=== PATIENT | female | born 1945 | race African-American/Black ===

== ENCOUNTER 2020-03-10 08:37 | Inpatient (IN) | payer MEDICARE, MEDICAID ==
[2020-03-10] VITALS (30 sets, daily range): BP systolic 107–167; BP diastolic 65–125
[~2020-03-10] VITALS: Ht 172.7 cm; Wt 115.2 kg
[2020-03-10] MEDS: IPRATROPIUM/ALBUTEROL 0.5-3(2.5)MG/3ML NEB HHN SCH ×2 (04:41→16:00)
[~2020-03-10 08:37] MED LIST: CARV3.1242 PO; VERA240C2 PO
[2020-03-10] MEDS ORDERED: ACETAMINOPHEN 650MG SUPP PR STA (08:53)
[2020-03-10] MEDS ORDERED: PIPERACILLIN/TAZ 3.375G PREMIX 50 ML IV ONE (09:00)
[2020-03-10] MEDS ORDERED: VANCOMYCIN 1 G PREMIX 200 ML IV ONE (09:00)
[2020-03-10] MEDS ORDERED: SODIUM CHLORIDE 0.9% 1000ML BAG (SEPSIS BOLUS) IV ONE (09:00)
[2020-03-10] MEDS ORDERED: ETOMIDATE 2MG/ML 10ML VIAL IV ONE (09:25)
[2020-03-10] MEDS ORDERED: VECURONIUM BROMIDE 10 MG/VIAL IV ONE (09:25)
[2020-03-10] MEDS ORDERED: PROPOFOL 10MG/ML 100ML 100 ML IV ONE (09:45)
[2020-03-10 09:54] LABS: HEMATOCRIT. 51.1 % (36.0-48.0); MEAN CORPUSCULAR HEMOGLOBIN 29.7 pg (28.0-32.0); MEAN CORPUSCULAR VOLUME 89.4 fL (81.0-99.0); RED BLOOD CELL COUNT 5.72 mill/uL (4.2-5.4); RED CELL DISTRIBUTION WIDTH 14.5 % (11.6-14.6)
[2020-03-10 09:56] LABS: CHLORIDE 102 mEq/L (98-107)
[2020-03-10 10:08] LABS: INR 1.1; PROTHROMBIN TIME 11.8 sec (9.6-11.0)
[2020-03-10] MEDS ORDERED: LABETALOL 5MG/ML SYR 20 MG/4 ML SYRINGE IV ONE (10:30)
[2020-03-10 10:52] LABS: MEAN PLATELET VOLUME 11.4 fl (7.4-10.4); PLATELET 116 x1000/uL (130-400)
[2020-03-10 10:53] LABS: PLATELET ESTIMATE SLIGHTLY DECREASED
[2020-03-10 11:08] LABS: CLARITY URINE CLEAR (CLEAR); COLOR URINE DARK YELLOW (YELLOW); KETONES URINE NEGATIVE (NEGATIVE); LEUKOCYTE ESTERASE URINE NEGATIVE (NEGATIVE); NITRITE URINE NEGATIVE (NEGATIVE); OCCULT BLOOD URINE 3+ (NEGATIVE); PH URINE 5.5 (4.5-8.0); PROTEIN URINE 3+ (NEGATIVE); SPECIFIC GRAVITY URINE 1.037 (1.005-1.030)
[2020-03-10] MEDS ORDERED: IPRATROPIUM/ALBUTEROL 0.5-3(2.5)MG/3ML NEB HHN PRN (13:15)
[2020-03-10 13:27] LABS: BG BASE EXCESS 0.9 mmol/L (-2.0-2.0); BG CARBOXYHEMOGLOBIN 0.3 % (0.5-1.5); BG DEOXYHEMOGLOBIN 0.4 % (0.0-5.0); BG FRACTION INSPIRED OXYGEN 100; BG HCO3 ACT 25.1 mmol/L (22.0-26.0); BG METHEMOGLOBIN 0.3 % (0.0-1.5); BG OXYGEN SATURATION 99.6 % (92.0-98.5); BG PCO2 38.7 mmHg (35.0-45.0); BG PO2 540.9 mmHg (75.0-100.0); BG SAMPLE SITE RIGHT BRACHIAL; BG TIDAL VOLUME(mL) 450 mL; BG TOTAL HEMOGLOBIN 15.3 g/dL (12.0-18.0); BG VENT MODE VENT - A/C; BG VENT RATE 16 set
[2020-03-10] MEDS ORDERED: ONDANSETRON HCL 4MG/2ML INJ IV PRN (14:15)
[2020-03-10] MEDS ORDERED: DIPHENHYDRAMINE 50MG/ML VIAL IV PRN (14:15)
[2020-03-10] MEDS ORDERED: LORAZEPAM 2MG/ML CPJ IV PRN (14:15)
[2020-03-10] MEDS: FAMOTIDINE 20MG/2ML VIAL IV SCH (14:52)
[2020-03-10] MEDS: DEXT 5%/0.45% NACL 1000ML 1,000 ML IV SCH (14:52)
[2020-03-10] MEDS: ENOXAPARIN 40MG/0.4ML SYR SUBCUT SCH (14:53)
[2020-03-10 15:02] LABS: *AMPHETAMINES SCREEN URINE NEGATIVE (NEGATIVE)
[2020-03-10 15:03] LABS: *BARBITURATES SCREEN URINE NEGATIVE (NEGATIVE); *BENZODIAZEPINES SCREEN URINE NEGATIVE (NEGATIVE); *COCAINE SCREEN URINE NEGATIVE (NEGATIVE); METHADONE URINE SCREEN NEGATIVE (NEGATIVE); OPIATES URINE SCREEN NEGATIVE (NEGATIVE)
[2020-03-10 15:04] LABS: CANNABINOID URINE SCREEN NEGATIVE (NEGATIVE); PHENCYCLIDINE URINE SCREEN NEGATIVE (NEGATIVE)
[2020-03-10] MEDS: PROPOFOL 10MG/ML 100ML 100 ML IV PRN (15:06)
[2020-03-10] MEDS: VERAPAMIL HCL 80 MG TABLET NG SCH ×2 (15:58→23:24)
[2020-03-10] MEDS ORDERED: CARVEDILOL 3.125 MG TABLET NG SCH (21:00)
[2020-03-10] MEDS: CARVEDILOL 6.25 MG TABLET NG SCH (21:00)
[2020-03-10] MEDS ORDERED: FAMOTIDINE 20MG/2ML VIAL IV SCH (21:00)
[2020-03-11] VITALS (60 sets, daily range): BP systolic 86–176; BP diastolic 35–112
[2020-03-11] MEDS: DEXT 5%/0.45% NACL 1000ML 1,000 ML IV SCH ×2 (03:38→17:00)
[2020-03-11] MEDS: VERAPAMIL HCL 80 MG TABLET NG SCH ×3 (05:18→21:26)
[2020-03-11] MEDS: PROPOFOL 10MG/ML 100ML 100 ML IV PRN (06:06)
[2020-03-11 06:16] LABS: BASOPHILS % 0.1 % (0.0-2.0); HEMATOCRIT. 42.7 % (36.0-48.0); LYMPHOCYTES % 7.4 % (20.0-50.0); MEAN CORPUSCULAR HEMOGLOBIN 29.4 pg (28.0-32.0); MEAN CORPUSCULAR VOLUME 89.7 fL (81.0-99.0); MONOCYTES % 11.5 % (2.0-8.0); PLATELET 109 x1000/uL (130-400); RED BLOOD CELL COUNT 4.76 mill/uL (4.2-5.4); RED CELL DISTRIBUTION WIDTH 14.6 % (11.6-14.6)
[2020-03-11 06:28] LABS: CHLORIDE 106 mEq/L (98-107)
[2020-03-11 06:56] LABS: PHOSPHORUS 3.3 mg/dL (2.5-4.9)
[2020-03-11 06:58] LABS: T4 FREE 1.33 ng/dL (0.76-1.46)
[2020-03-11] MEDS: ENOXAPARIN 40MG/0.4ML SYR SUBCUT SCH (08:04)
[2020-03-11] MEDS: FAMOTIDINE 20MG/2ML VIAL IV SCH (08:04)
[2020-03-11] MEDS: CARVEDILOL 6.25 MG TABLET NG SCH ×2 (08:05→21:26)
[2020-03-11] MEDS: IPRATROPIUM/ALBUTEROL 0.5-3(2.5)MG/3ML NEB HHN SCH ×3 (08:36→23:58)
[2020-03-11] MEDS ORDERED: PROPOFOL 10MG/ML 100ML 100 ML IV PRN (08:45)
[2020-03-11 08:57] LABS: BG BASE EXCESS 1.1 mmol/L (-2.0-2.0); BG CARBOXYHEMOGLOBIN 0.2 % (0.5-1.5); BG FRACTION INSPIRED OXYGEN 40; BG HCO3 ACT 24.4 mmol/L (22.0-26.0); BG METHEMOGLOBIN 0.2 % (0.0-1.5); BG OXYHEMOGLOBIN 98.6 % (94.0-97.0); BG PCO2 34.8 mmHg (35.0-45.0); BG PH 7.463 (7.350-7.450); BG SAMPLE SITE RIGHT RADIAL; BG TIDAL VOLUME(mL) 450 mL; BG TOTAL HEMOGLOBIN 14.4 g/dL (12.0-18.0); BG VENT MODE VENT - A/C; BG VENT RATE 16 set
[2020-03-11] MEDS: PIPERACILLIN/TAZOBACTAM 3.375 G in DEXT 5% WATER 100 ML IV SCH ×3 (10:47→23:57)
[2020-03-11] MEDS: ACETAMINOPHEN 650MG/20.3ML UDC NG PRN (21:26)
[2020-03-12] VITALS (48 sets, daily range): BP systolic 97–146; BP diastolic 45–109
[2020-03-12] MEDS: IPRATROPIUM/ALBUTEROL 0.5-3(2.5)MG/3ML NEB HHN SCH ×3 (00:05→14:47)
[2020-03-12] MEDS: PIPERACILLIN/TAZOBACTAM 3.375 G in DEXT 5% WATER 100 ML IV SCH ×4 (06:30→23:55)
[2020-03-12] MEDS: VERAPAMIL HCL 80 MG TABLET NG SCH ×3 (06:30→21:21)
[2020-03-12] MEDS: DEXT 5%/0.45% NACL 1000ML 1,000 ML IV SCH ×3 (06:31→21:18)
[2020-03-12] MEDS: FAMOTIDINE 20MG/2ML VIAL IV SCH (09:36)
[2020-03-12] MEDS: CARVEDILOL 6.25 MG TABLET NG SCH ×2 (09:36→21:21)
[2020-03-12 11:32] LABS: HEMATOCRIT. 38.9 % (36.0-48.0); HEMOGLOBIN. 12.8 g/dL (12.0-16.0); MEAN CORPUSCULAR HEMOGLOBIN 29.4 pg (28.0-32.0); MEAN CORPUSCULAR VOLUME 89.2 fL (81.0-99.0); PLATELET 105 x1000/uL (130-400); RED BLOOD CELL COUNT 4.36 mill/uL (4.2-5.4); RED CELL DISTRIBUTION WIDTH 14.7 % (11.6-14.6)
[2020-03-12 12:55] LABS: PLATELET ESTIMATE SLIGHTLY DECREASED
[2020-03-12] MEDS ORDERED: POTASSIUM CHLORIDE 20MEQ/PACKET PO NR (14:00)
[2020-03-13] VITALS (47 sets, daily range): BP systolic 110–171; BP diastolic 52–99
[2020-03-13 05:27] LABS: BASOPHILS % 0.2 % (0.0-2.0); EOSINOPHILS % 0.5 % (0.0-5.0); HEMATOCRIT. 37.8 % (36.0-48.0); HEMOGLOBIN. 12.4 g/dL (12.0-16.0); MEAN CORPUSCULAR HEMOGLOBIN 29.6 pg (28.0-32.0); MEAN PLATELET VOLUME 10.3 fl (7.4-10.4); MONOCYTES % 14.5 % (2.0-8.0); NEUTROPHILS % 76.8 % (40.0-76.0); PLATELET 119 x1000/uL (130-400); RED CELL DISTRIBUTION WIDTH 14.5 % (11.6-14.6)
[2020-03-13] MEDS: PIPERACILLIN/TAZOBACTAM 3.375 G in DEXT 5% WATER 100 ML IV SCH ×4 (06:10→23:06)
[2020-03-13] MEDS: VERAPAMIL HCL 80 MG TABLET NG SCH ×3 (06:10→22:28)
[2020-03-13] MEDS: IPRATROPIUM/ALBUTEROL 0.5-3(2.5)MG/3ML NEB HHN SCH (08:58)
[2020-03-13] MEDS: FAMOTIDINE 20MG/2ML VIAL IV SCH (09:02)
[2020-03-13] MEDS: CARVEDILOL 6.25 MG TABLET NG SCH ×2 (09:02→20:49)
[2020-03-13] MEDS: ASPIRIN 81MG TABLET NG SCH (09:02)
[2020-03-13] MEDS: DEXT 5%/0.45% NACL 1000ML 1,000 ML IV SCH ×2 (10:46→22:31)
[2020-03-13] MEDS ORDERED: VANCOMYCIN 1,250 MG in DEXT 5% WATER 250 ML IV SCH (14:00)
[2020-03-14] VITALS (48 sets, daily range): BP systolic 125–175; BP diastolic 46–119
[2020-03-14] MEDS: PIPERACILLIN/TAZOBACTAM 3.375 G in DEXT 5% WATER 100 ML IV SCH ×4 (05:12→23:54)
[2020-03-14] MEDS: VERAPAMIL HCL 80 MG TABLET NG SCH ×3 (05:13→21:49)
[2020-03-14 05:44] LABS: HEMATOCRIT. 37.9 % (36.0-48.0); HEMOGLOBIN. 12.6 g/dL (12.0-16.0); MEAN CORPUSCULAR HEMOGLOBIN 29.8 pg (28.0-32.0); MEAN CORPUSCULAR VOLUME 89.7 fL (81.0-99.0); MEAN PLATELET VOLUME 10.6 fl (7.4-10.4); PLATELET 126 x1000/uL (130-400); RED BLOOD CELL COUNT 4.22 mill/uL (4.2-5.4); RED CELL DISTRIBUTION WIDTH 14.6 % (11.6-14.6)
[2020-03-14 05:46] LABS: CHLORIDE 105 mEq/L (98-107)
[2020-03-14] MEDS: FAMOTIDINE 20MG/2ML VIAL IV SCH (08:39)
[2020-03-14] MEDS: ASPIRIN 81MG TABLET NG SCH (08:39)
[2020-03-14] MEDS: CARVEDILOL 6.25 MG TABLET NG SCH ×2 (08:40→21:49)
[2020-03-14] MEDS: IPRATROPIUM/ALBUTEROL 0.5-3(2.5)MG/3ML NEB HHN SCH ×3 (09:24→23:44)
[2020-03-14] MEDS ORDERED: LIDOCAINE HCL 1% 20ML VIAL (Pyxis) INJ ONE (09:36)
[2020-03-14 10:17] LABS: BG CARBOXYHEMOGLOBIN 0.3 % (0.5-1.5); BG DEOXYHEMOGLOBIN 1.4 % (0.0-5.0); BG FRACTION INSPIRED OXYGEN 30; BG METHEMOGLOBIN 0.3 % (0.0-1.5); BG OXYGEN SATURATION 98.6 % (92.0-98.5); BG PCO2 29.7 mmHg (35.0-45.0); BG PH 7.526 (7.350-7.450); BG PO2 135.6 mmHg (75.0-100.0); BG SAMPLE SITE RIGHT RADIAL; BG TIDAL VOLUME(mL) 450 mL; BG TOTAL HEMOGLOBIN 12.5 g/dL (12.0-18.0); BG VENT MODE VENT - A/C; BG VENT RATE 16 set
[2020-03-14] MEDS: VANCOMYCIN 1 G PREMIX 200 ML IV SCH (11:12)
[2020-03-14 11:24] LABS: PLATELET ESTIMATE NORMAL
[2020-03-14] MEDS: DEXT 5%/0.45% NACL 1000ML 1,000 ML IV SCH (12:50)
[2020-03-15] VITALS (46 sets, daily range): BP systolic 104–170; BP diastolic 45–112
[2020-03-15] MEDS: IPRATROPIUM/ALBUTEROL 0.5-3(2.5)MG/3ML NEB HHN SCH ×3 (00:37→16:25)
[2020-03-15] MEDS: DEXT 5%/0.45% NACL 1000ML 1,000 ML IV SCH ×2 (01:40→14:20)
[2020-03-15] MEDS: VANCOMYCIN 1 G PREMIX 200 ML IV SCH ×2 (05:01→23:13)
[2020-03-15] MEDS: PIPERACILLIN/TAZOBACTAM 3.375 G in DEXT 5% WATER 100 ML IV SCH ×4 (05:27→23:13)
[2020-03-15] MEDS: VERAPAMIL HCL 80 MG TABLET NG SCH ×3 (05:28→21:28)
[2020-03-15 06:01] LABS: HEMOGLOBIN 11.9 g/dL (12.0-16.0); MEAN CORPUSCULAR HEMOGLOBIN 29.3 pg (28.0-32.0); MEAN CORPUSCULAR VOLUME 88.3 fL (81.0-99.0); PLATELET 146 x1000/uL (130-400); RED BLOOD CELL COUNT 4.07 mill/uL (4.2-5.4); RED CELL DISTRIBUTION WIDTH 14.8 % (11.6-14.6)
[2020-03-15 06:16] LABS: CHLORIDE 104 mEq/L (98-107)
[2020-03-15] MEDS: FAMOTIDINE 20MG/2ML VIAL IV SCH (08:25)
[2020-03-15] MEDS: ASPIRIN 81MG TABLET NG SCH (08:25)
[2020-03-15] MEDS: CARVEDILOL 6.25 MG TABLET NG SCH ×2 (08:26→21:29)
[2020-03-15 10:37] LABS: BG BASE EXCESS 2.8 mmol/L (-2.0-2.0); BG CARBOXYHEMOGLOBIN 0.3 % (0.5-1.5); BG DEOXYHEMOGLOBIN 1.5 % (0.0-5.0); BG HCO3 ACT 25.1 mmol/L (22.0-26.0); BG METHEMOGLOBIN 0.3 % (0.0-1.5); BG OXYGEN SATURATION 98.5 % (92.0-98.5); BG OXYHEMOGLOBIN 97.9 % (94.0-97.0); BG PCO2 30.9 mmHg (35.0-45.0); BG PH 7.527 (7.350-7.450); BG SAMPLE SITE RIGHT RADIAL; BG TIDAL VOLUME(mL) 450 mL; BG VENT MODE VENT - A/C; BG VENT RATE 16 set
[2020-03-16] VITALS (37 sets, daily range): BP systolic 96–146; BP diastolic 43–88
[2020-03-16] MEDS: IPRATROPIUM/ALBUTEROL 0.5-3(2.5)MG/3ML NEB HHN SCH ×2 (00:42→16:50)
[2020-03-16] MEDS: DEXT 5%/0.45% NACL 1000ML 1,000 ML IV SCH (03:36)
[2020-03-16] MEDS: PIPERACILLIN/TAZOBACTAM 3.375 G in DEXT 5% WATER 100 ML IV SCH (05:50)
[2020-03-16] MEDS: VERAPAMIL HCL 80 MG TABLET NG SCH ×3 (05:51→21:31)
[2020-03-16 09:21] LABS: BG BASE EXCESS 0.1 mmol/L (-2.0-2.0); BG CARBOXYHEMOGLOBIN 0.6 % (0.5-1.5); BG DEOXYHEMOGLOBIN 1.9 % (0.0-5.0); BG FRACTION INSPIRED OXYGEN 30; BG HCO3 ACT 22.7 mmol/L (22.0-26.0); BG METHEMOGLOBIN 0.1 % (0.0-1.5); BG OXYGEN SATURATION 98.1 % (92.0-98.5); BG OXYHEMOGLOBIN 97.4 % (94.0-97.0); BG PCO2 31.1 mmHg (35.0-45.0); BG PH 7.482 (7.350-7.450); BG PO2 103.5 mmHg (75.0-100.0); BG SAMPLE SITE RIGHT BRACHIAL; BG TIDAL VOLUME(mL) 450 mL; BG TOTAL HEMOGLOBIN 13.5 g/dL (12.0-18.0); BG VENT MODE VENT - A/C; BG VENT RATE 16 set
[2020-03-16] MEDS: CARVEDILOL 6.25 MG TABLET NG SCH ×2 (09:40→21:31)
[2020-03-16] MEDS: FAMOTIDINE 20MG/2ML VIAL IV SCH (09:40)
[2020-03-16 10:31] LABS: PARTIAL THROMBOPLASTIN TIME 26.8 sec (23.4-31.0); PROTHROMBIN TIME 10.8 sec (9.6-11.0)
[2020-03-16] MEDS ORDERED: VECURONIUM BROMIDE 10 MG/VIAL IV ONE (10:50)
[2020-03-16] MEDS ORDERED: SODIUM CHLORIDE 0.9% 10ML VIAL ONE (10:50)
[2020-03-16 13:19] LABS: HEMATOCRIT. 34.8 % (36.0-48.0); HEMOGLOBIN. 11.4 g/dL (12.0-16.0); MEAN CORPUSCULAR HEMOGLOBIN 29.5 pg (28.0-32.0); MEAN CORPUSCULAR VOLUME 90.1 fL (81.0-99.0); MEAN PLATELET VOLUME 10.8 fl (7.4-10.4); PLATELET 161 x1000/uL (130-400); RED BLOOD CELL COUNT 3.86 mill/uL (4.2-5.4); RED CELL DISTRIBUTION WIDTH 14.7 % (11.6-14.6)
[2020-03-16 13:39] LABS: PLATELET ESTIMATE NORMAL
[2020-03-16] MEDS: VANCOMYCIN 1 G PREMIX 200 ML IV SCH (16:59)
[2020-03-16] MEDS: PANTOPRAZOLE SODIUM 40 MG/VIAL IV SCH (21:31)
[2020-03-17] VITALS (14 sets, daily range): BP systolic 104–135; BP diastolic 51–75
[2020-03-17] MEDS: IPRATROPIUM/ALBUTEROL 0.5-3(2.5)MG/3ML NEB HHN SCH ×3 (00:09→15:23)
[2020-03-17] MEDS: VERAPAMIL HCL 80 MG TABLET NG SCH ×3 (06:37→21:26)
[2020-03-17 07:50] LABS: CHLORIDE 101 mEq/L (98-107)
[2020-03-17 07:52] LABS: HEMATOCRIT. 35.1 % (36.0-48.0); HEMOGLOBIN. 11.5 g/dL (12.0-16.0); MEAN CORPUSCULAR HEMOGLOBIN 29.6 pg (28.0-32.0); MEAN CORPUSCULAR VOLUME 89.9 fL (81.0-99.0); MEAN PLATELET VOLUME 10.1 fl (7.4-10.4); PLATELET 162 x1000/uL (130-400); RED CELL DISTRIBUTION WIDTH 15.1 % (11.6-14.6)
[2020-03-17] MEDS: CARVEDILOL 6.25 MG TABLET NG SCH ×2 (08:05→21:26)
[2020-03-17 08:09] LABS: PARTIAL THROMBOPLASTIN TIME 26.8 sec (23.4-31.0); PROTHROMBIN TIME 10.5 sec (9.6-11.0)
[2020-03-17] MEDS: PANTOPRAZOLE SODIUM 40 MG/VIAL IV SCH ×2 (08:19→21:25)
[2020-03-17] MEDS: SODIUM CHLORIDE 0.9% 1,000 ML IV SCH (08:19)
[2020-03-17 09:54] LABS: BG BASE EXCESS 1.6 mmol/L (-2.0-2.0); BG CARBOXYHEMOGLOBIN 0.3 % (0.5-1.5); BG DEOXYHEMOGLOBIN 0.5 % (0.0-5.0); BG HCO3 ACT 24.6 mmol/L (22.0-26.0); BG METHEMOGLOBIN 0.3 % (0.0-1.5); BG OXYGEN SATURATION 99.5 % (92.0-98.5); BG OXYHEMOGLOBIN 98.9 % (94.0-97.0); BG PCO2 33.2 mmHg (35.0-45.0); BG PH 7.487 (7.350-7.450); BG PO2 255.9 mmHg (75.0-100.0); BG SAMPLE SITE RIGHT RADIAL; BG TIDAL VOLUME(mL) 450 mL; BG TOTAL HEMOGLOBIN 11.9 g/dL (12.0-18.0); BG VENT MODE VENT - A/C; BG VENT RATE 12 set
[2020-03-17] MEDS: VANCOMYCIN 1 G PREMIX 200 ML IV SCH (11:02)
[2020-03-17 11:19] LABS: PLATELET ESTIMATE NORMAL
[2020-03-17] MEDS ORDERED: MIDAZOLAM HCL 5 MG/5 ML VIAL ONE (12:00)
[2020-03-17] MEDS ORDERED: FENTANYL CITRATE/PF 50MCG/ML 2ML VIAL ONE (12:00)
[2020-03-17] MEDS ORDERED: MIDAZOLAM HCL 5 MG/5 ML VIAL IV PRN (12:30)
[2020-03-17] MEDS: METOCLOPRAMIDE HCL 10MG/2ML VIAL IV SCH (17:12)
[2020-03-18] VITALS (12 sets, daily range): BP systolic 112–152; BP diastolic 44–92
[2020-03-18] MEDS: IPRATROPIUM/ALBUTEROL 0.5-3(2.5)MG/3ML NEB HHN SCH ×3 (00:21→16:19)
[2020-03-18] MEDS: SODIUM CHLORIDE 0.9% 1,000 ML IV SCH (03:30)
[2020-03-18] MEDS: VERAPAMIL HCL 80 MG TABLET NG SCH ×3 (05:42→21:29)
[2020-03-18] MEDS: METOCLOPRAMIDE HCL 10MG/2ML VIAL IV SCH ×4 (05:42→17:48)
[2020-03-18] MEDS: CARVEDILOL 6.25 MG TABLET NG SCH ×2 (09:28→21:29)
[2020-03-18] MEDS ORDERED: VANCOMYCIN 750 MG PREMIX 150 ML IV SCH (20:00)
[2020-03-19] VITALS (12 sets, daily range): BP systolic 113–150; BP diastolic 60–87
[2020-03-19] MEDS: METOCLOPRAMIDE HCL 10MG/2ML VIAL IV SCH ×5 (00:15→23:00)
[2020-03-19] MEDS: IPRATROPIUM/ALBUTEROL 0.5-3(2.5)MG/3ML NEB HHN SCH ×4 (00:18→23:38)
[2020-03-19] MEDS: VERAPAMIL HCL 80 MG TABLET NG SCH ×3 (05:48→21:01)
[2020-03-19] MEDS: CARVEDILOL 6.25 MG TABLET NG SCH ×2 (08:29→20:17)
[2020-03-20] VITALS (13 sets, daily range): BP systolic 119–169; BP diastolic 55–98
[2020-03-20] MEDS: IPRATROPIUM/ALBUTEROL 0.5-3(2.5)MG/3ML NEB HHN SCH ×3 (00:42→16:13)
[2020-03-20] MEDS: CLONIDINE 0.1MG TABLET NG PRN (04:08)
[2020-03-20] MEDS: VERAPAMIL HCL 80 MG TABLET NG SCH ×3 (05:56→21:21)
[2020-03-20 08:02] LABS: HEMATOCRIT. 34.6 % (36.0-48.0); HEMOGLOBIN. 11.2 g/dL (12.0-16.0); MEAN CORPUSCULAR HEMOGLOBIN 29.2 pg (28.0-32.0); MEAN CORPUSCULAR VOLUME 89.8 fL (81.0-99.0); MEAN PLATELET VOLUME 9.9 fl (7.4-10.4); PLATELET 192 x1000/uL (130-400); RED BLOOD CELL COUNT 3.85 mill/uL (4.2-5.4); RED CELL DISTRIBUTION WIDTH 15.1 % (11.6-14.6)
[2020-03-20] MEDS: CARVEDILOL 6.25 MG TABLET NG SCH ×2 (09:00→20:26)
[2020-03-20] MEDS: SODIUM CHLORIDE 0.45% 1,000 ML IV SCH ×2 (10:49→21:20)
[2020-03-20 11:18] LABS: PLATELET ESTIMATE NORMAL
[2020-03-21] VITALS (12 sets, daily range): BP systolic 109–158; BP diastolic 57–87
[2020-03-21] MEDS: IPRATROPIUM/ALBUTEROL 0.5-3(2.5)MG/3ML NEB NEB PRN (00:48)
[2020-03-21] MEDS: VERAPAMIL HCL 80 MG TABLET NG SCH ×3 (05:19→21:14)
[2020-03-21] MEDS: SODIUM CHLORIDE 0.45% 1,000 ML IV SCH ×2 (06:51→16:43)
[2020-03-21] MEDS: IPRATROPIUM/ALBUTEROL 0.5-3(2.5)MG/3ML NEB HHN SCH ×2 (08:19→15:46)
[2020-03-21] MEDS: CARVEDILOL 6.25 MG TABLET NG SCH ×2 (08:47→20:06)
[2020-03-21] MEDS: ACETAMINOPHEN 650MG/20.3ML UDC NG PRN (19:52)
[2020-03-22] VITALS (12 sets, daily range): BP systolic 111–145; BP diastolic 62–83
[2020-03-22] MEDS: IPRATROPIUM/ALBUTEROL 0.5-3(2.5)MG/3ML NEB HHN SCH ×3 (00:03→14:51)
[2020-03-22] MEDS: SODIUM CHLORIDE 0.45% 1,000 ML IV SCH ×3 (02:32→20:15)
[2020-03-22] MEDS: VERAPAMIL HCL 80 MG TABLET NG SCH ×3 (05:02→22:06)
[2020-03-22] MEDS: CARVEDILOL 6.25 MG TABLET NG SCH ×2 (09:25→20:14)
[2020-03-23] VITALS (12 sets, daily range): BP systolic 121–151; BP diastolic 55–100
[2020-03-23] MEDS: IPRATROPIUM/ALBUTEROL 0.5-3(2.5)MG/3ML NEB HHN SCH ×3 (00:22→14:00)
[2020-03-23] MEDS: CARVEDILOL 6.25 MG TABLET NG SCH ×2 (09:49→21:05)
[2020-03-23] MEDS: SODIUM CHLORIDE 0.45% 1,000 ML IV SCH ×2 (09:57→21:06)
[2020-03-23] MEDS: VERAPAMIL HCL 80 MG TABLET NG SCH (14:54)
[2020-03-24] VITALS (12 sets, daily range): BP systolic 99–152; BP diastolic 27–90
[2020-03-24] MEDS: IPRATROPIUM/ALBUTEROL 0.5-3(2.5)MG/3ML NEB HHN SCH ×3 (00:33→16:15)
[2020-03-24] MEDS: VERAPAMIL HCL 80 MG TABLET NG SCH ×4 (05:01→22:49)
[2020-03-24] MEDS: CARVEDILOL 6.25 MG TABLET NG SCH ×2 (09:30→22:49)
[2020-03-24] MEDS: SODIUM CHLORIDE 0.45% 1,000 ML IV SCH ×3 (09:37→23:47)
[2020-03-25] VITALS (13 sets, daily range): BP systolic 105–153; BP diastolic 54–81
[2020-03-25] MEDS: IPRATROPIUM/ALBUTEROL 0.5-3(2.5)MG/3ML NEB HHN SCH ×4 (00:43→23:56)
[2020-03-25] MEDS: VERAPAMIL HCL 80 MG TABLET NG SCH ×3 (05:04→21:30)
[2020-03-25 09:13] LABS: BASOPHILS % 0.4 % (0.0-2.0); HEMATOCRIT. 33.4 % (36.0-48.0); HEMOGLOBIN. 10.9 g/dL (12.0-16.0); LYMPHOCYTES % 7.8 % (20.0-50.0); MEAN CORPUSCULAR HEMOGLOBIN 29.4 pg (28.0-32.0); MEAN CORPUSCULAR VOLUME 90.2 fL (81.0-99.0); MEAN PLATELET VOLUME 9.9 fl (7.4-10.4); MONOCYTES % 11.7 % (2.0-8.0); NEUTROPHILS % 79.1 % (40.0-76.0); PLATELET 152 x1000/uL (130-400)
[2020-03-25] MEDS: SODIUM CHLORIDE 0.45% 1,000 ML IV SCH (09:53)
[2020-03-25] MEDS: CARVEDILOL 6.25 MG TABLET NG SCH ×2 (12:05→21:31)
[2020-03-25] MEDS: ZINC SULFATE 220 MG ( 50 ) CAPSULE GT SCH (12:05)
[2020-03-25] MEDS: ASCORBIC ACID 500 MG TABLET GT SCH (12:05)
[2020-03-26] VITALS (12 sets, daily range): BP systolic 127–151; BP diastolic 48–112
[2020-03-26] MEDS: SODIUM CHLORIDE 0.45% 1,000 ML IV SCH ×4 (00:29→23:19)
[2020-03-26] MEDS: CLONIDINE 0.1MG TABLET NG PRN (01:45)
[2020-03-26] MEDS: VERAPAMIL HCL 80 MG TABLET NG SCH ×3 (04:54→22:00)
[2020-03-26] MEDS: ASCORBIC ACID 500 MG TABLET GT SCH (08:48)
[2020-03-26] MEDS: ZINC SULFATE 220 MG ( 50 ) CAPSULE GT SCH (08:48)
[2020-03-26] MEDS: CARVEDILOL 6.25 MG TABLET NG SCH ×2 (08:52→21:59)
[2020-03-26] MEDS: IPRATROPIUM/ALBUTEROL 0.5-3(2.5)MG/3ML NEB HHN SCH ×3 (09:57→23:45)
[2020-03-27] VITALS (13 sets, daily range): BP systolic 121–166; BP diastolic 56–89
[2020-03-27] MEDS: VERAPAMIL HCL 80 MG TABLET NG SCH ×3 (06:02→21:12)
[2020-03-27] MEDS: CARVEDILOL 6.25 MG TABLET NG SCH ×2 (08:45→21:12)
[2020-03-27] MEDS: ASCORBIC ACID 500 MG TABLET GT SCH (08:45)
[2020-03-27] MEDS: ZINC SULFATE 220 MG ( 50 ) CAPSULE GT SCH (08:45)
[2020-03-27] MEDS: IPRATROPIUM/ALBUTEROL 0.5-3(2.5)MG/3ML NEB HHN SCH ×2 (08:51→15:29)
[2020-03-27] MEDS: SODIUM CHLORIDE 0.45% 1,000 ML IV SCH ×2 (12:01→21:23)
[2020-03-28] VITALS (12 sets, daily range): BP systolic 116–165; BP diastolic 62–89
[2020-03-28] MEDS: CLONIDINE 0.1MG TABLET NG PRN (01:21)
[2020-03-28] MEDS: VERAPAMIL HCL 80 MG TABLET NG SCH ×3 (05:39→21:28)
[2020-03-28] MEDS: IPRATROPIUM/ALBUTEROL 0.5-3(2.5)MG/3ML NEB HHN SCH ×2 (09:03→14:25)
[2020-03-28] MEDS: ZINC SULFATE 220 MG ( 50 ) CAPSULE GT SCH (09:24)
[2020-03-28] MEDS: SODIUM CHLORIDE 0.45% 1,000 ML IV SCH ×2 (09:25→17:46)
[2020-03-28] MEDS: ASCORBIC ACID 500 MG TABLET GT SCH (09:25)
[2020-03-28] MEDS: CARVEDILOL 6.25 MG TABLET NG SCH ×2 (09:27→20:43)
[2020-03-29] VITALS (14 sets, daily range): BP systolic 116–158; BP diastolic 49–91
[2020-03-29] MEDS: IPRATROPIUM/ALBUTEROL 0.5-3(2.5)MG/3ML NEB HHN SCH ×3 (00:13→16:54)
[2020-03-29] MEDS: SODIUM CHLORIDE 0.45% 1,000 ML IV SCH ×2 (04:03→13:26)
[2020-03-29] MEDS: VERAPAMIL HCL 80 MG TABLET NG SCH ×3 (05:37→21:23)
[2020-03-29] MEDS: ZINC SULFATE 220 MG ( 50 ) CAPSULE GT SCH (08:58)
[2020-03-29] MEDS: ASCORBIC ACID 500 MG TABLET GT SCH (08:58)
[2020-03-29] MEDS: CARVEDILOL 6.25 MG TABLET NG SCH ×2 (08:59→20:29)
[2020-03-30] VITALS (13 sets, daily range): BP systolic 127–159; BP diastolic 57–88
[2020-03-30] MEDS: SODIUM CHLORIDE 0.45% 1,000 ML IV SCH ×2 (00:45→11:34)
[2020-03-30] MEDS: IPRATROPIUM/ALBUTEROL 0.5-3(2.5)MG/3ML NEB HHN SCH ×2 (01:23→08:53)
[2020-03-30] MEDS: VERAPAMIL HCL 80 MG TABLET NG SCH ×3 (05:06→21:34)
[2020-03-30] MEDS: ASCORBIC ACID 500 MG TABLET GT SCH (08:19)
[2020-03-30] MEDS: CARVEDILOL 6.25 MG TABLET NG SCH ×2 (08:20→20:12)
[2020-03-30] MEDS: ZINC SULFATE 220 MG ( 50 ) CAPSULE GT SCH (08:20)
[2020-03-30] MEDS: IPRATROPIUM/ALBUTEROL 0.5-3(2.5)MG/3ML NEB NEB PRN (12:51)
[2020-03-31] VITALS: BP 136/70
[2020-03-31] MEDS: IPRATROPIUM/ALBUTEROL 0.5-3(2.5)MG/3ML NEB HHN SCH (00:17)
== END 2020-03-31 01:17 | DRG 3 ==
LOC: ER 08:37 → EDBEDREQSVC 08:55 → CVICU 10:48 → EDBEDREQ 10:51 → ENRESERV 11:29 → 5EST 03-17 02:31
PROVIDERS: ADMIT Internal Medicine; ATTEND Internal Medicine
PROC: 5A1955Z Respiratory Ventilation, Greater than 96 Consecutive Hours (ICD-10-PCS; 2020-03-10)
PROC: 06HY33Z Insertion of Infusion Device into Lower Vein, Percutaneous Approach (ICD-10-PCS; 2020-03-10)
PROC: 4A00X4Z Measurement of Central Nervous Electrical Activity, External Approach (ICD-10-PCS; 2020-03-13)
PROC: 02HV33Z Insertion of Infusion Device into Superior Vena Cava, Percutaneous Approach (ICD-10-PCS; 2020-03-14)
PROC: B548ZZA Ultrasonography of Superior Vena Cava, Guidance (ICD-10-PCS; 2020-03-14)
PROC: 0B113F4 Bypass Trachea to Cutaneous with Tracheostomy Device, Percutaneous Approach (ICD-10-PCS; principal; 2020-03-16)
PROC: 0GT Endocrine System, Resection (ICD-10-PCS; 2020-03-16)
PROC: 0BH17EZ Insertion of Endotracheal Airway into Trachea, Via Natural or Artificial Opening (ICD-10-PCS; 2020-03-16)
PROC: 5A1955Z Respiratory Ventilation, Greater than 96 Consecutive Hours (ICD-10-PCS; 2020-03-16)
PROC: 0DB78ZX Excision of Stomach, Pylorus, Via Natural or Artificial Opening Endoscopic, Diagnostic (ICD-10-PCS; 2020-03-17)
PROC: 0DH63UZ Insertion of Feeding Device into Stomach, Percutaneous Approach (ICD-10-PCS; 2020-03-17)
DX: I63.512 Cerebral infarction due to unspecified occlusion or stenosis of left middle cerebral artery (principal); J96.01 Acute respiratory failure with hypoxia; I61.9 Nontraumatic intracerebral hemorrhage, unspecified; I48.20 Chronic atrial fibrillation, unspecified; E46 Unspecified protein-calorie malnutrition; D68.59 Other primary thrombophilia; G93.49 Other encephalopathy; N17.9 Acute kidney failure, unspecified; E87.1 Hypo-osmolality and hyponatremia; Z99.11 Dependence on respirator [ventilator] status; G81.91 Hemiplegia, unspecified affecting right dominant side; R78.81 Bacteremia; D69.6 Thrombocytopenia, unspecified; Z20.828 Contact with and (suspected) exposure to other viral communicable diseases; E78.5 Hyperlipidemia, unspecified; I10 Essential (primary) hypertension; F03.90 Unspecified dementia, unspecified severity, without behavioral disturbance, psychotic disturbance, mood disturbance, and anxiety; K29.30 Chronic superficial gastritis without bleeding; D17.9 Benign lipomatous neoplasm, unspecified; B95.8 Unspecified staphylococcus as the cause of diseases classified elsewhere; D75.1 Secondary polycythemia; Z68.38 Body mass index [BMI] 38.0-38.9, adult; Z79.899 Other long term (current) drug therapy; Z93.1 Gastrostomy status; I69.391 Dysphagia following cerebral infarction; Z78.1 Physical restraint status
CPT/HCPCS: 31500; 36415; 36556; 36600; 70551; 71045; 76937; 80048; 80053; 80061; 80202; 80305; 81003; 82140; 82375; 82805; 82962; 83036; 83605; 83735; 84100; 84145; 84439; 84443; 84478; 84484; 85025; 85027; 87070; 87635; 88305; 88312; 88313; 93005; 93306; 93880; 93970; 94002; 94003; 94640; 95816; 99291; C1725; C9113; J1650; J2250; J2543; J2704; J2765; J3010; J3370; J3490; J7030; J7060